=== PATIENT | male | born 1945 | race Caucasian/White ===

== ENCOUNTER 2022-01-02 19:50 | Inpatient (IN) | payer OTHER ==
[~2022-01-02] VITALS: Ht 177.8 cm; Wt 99.8 kg
[2022-01-02 20:08] VITALS: BP 208/104
[2022-01-02] MEDS ORDERED: ACETAMINOPHEN 325 MG TAB PO ONE (20:35)
[2022-01-02] MEDS ORDERED: ONDANSETRON 4 MG/2 ML VIAL IVP ONE (20:35)
[2022-01-02] MEDS ORDERED: NACL 0.9% 1,000 ML IV ONE ×2 (20:35)
[2022-01-02 21:06] LABS: BASOPHILS % (AUTO) 0.2 % (0.0-2.0); EOSINOPHILS # (AUTO) 0.1 K/uL (0-0.4); EOSINOPHILS % (AUTO) 1.1 % (0.0-4.0); HEMATOCRIT 47.6 % (36-52); HEMOGLOBIN 15.8 g/dL (12.0-18.0); LYMPHOCYTES # (AUTO) 0.5 K/uL (2.0-11.5); LYMPHOCYTES % (AUTO) 7.9 % (20.5-51.1); MEAN CORPUSCULAR HEMOGLOBIN 31 pg (27-31); MEAN CORPUSCULAR HGB CONC 33 g/dL (33-37); MEAN CORPUSCULAR VOLUME 92.1 fL (80-94); MONOCYTES % (AUTO) 0.5 % (1.7-9.3); NEUTROPHILS # (AUTO) 5.6 K/uL (1.8-7.7); NEUTROPHILS % (AUTO) 90.3 % (42.2-75.2); PLATELET COUNT (AUTO) 194 K/uL (140-450); RED BLOOD CELL COUNT(AUTO) 5.17 MIL/uL (4.20-6.10); RED CELL DISTRIBUTION WIDTH 13.6 % (11.6-13.7); WHITE BLOOD COUNT (AUTO) 6.3 K/uL (4.8-10.8)
[2022-01-02 21:20] LABS: PROTHROMBIN TIME 10.4 secs (10.8-13.4)
[2022-01-02 21:24] LABS: ALBUMIN 2.6 g/dL (3.4-5.0); ANION GAP 9.1 (8-16); ASPARTATE AMINOTRANSFERASE 23 U/L (15-37); CARBON DIOXIDE 27.9 mmol/L (21-32); CHLORIDE 108 mmol/L (98-107); GLUCOSE 251 mg/dL (74-106); SODIUM SERUM 140 mmol/L (136-145); TOTAL BILIRUBIN 0.6 mg/dL (0.0-1.0); UREA NITROGEN, BLOOD 26 mg/dL (7-18)
[2022-01-02] MEDS ORDERED: cefTRIAXone 1,000 MG VIAL ONE (22:39)
[2022-01-02] MEDS ORDERED: METF-713 PO (23:14)
[2022-01-02] MEDS ORDERED: LOSA100T1 PO (23:15)
[2022-01-02] MEDS ORDERED: TAMS0.4C96 PO (23:16)
[2022-01-03 06:42] LABS: HEMATOCRIT 44.2 % (36-52); HEMOGLOBIN 14.3 g/dL (12.0-18.0); MEAN CORPUSCULAR HEMOGLOBIN 30 pg (27-31); MEAN CORPUSCULAR HGB CONC 32 g/dL (33-37); MEAN CORPUSCULAR VOLUME 93.3 fL (80-94); PLATELET COUNT (AUTO) 176 K/uL (140-450); RED BLOOD CELL COUNT(AUTO) 4.74 MIL/uL (4.20-6.10); RED CELL DISTRIBUTION WIDTH 13.4 % (11.6-13.7)
[2022-01-03 06:48] LABS: ANION GAP 6.3 (8-16); CARBON DIOXIDE 26.7 mmol/L (21-32); CHLORIDE 110 mmol/L (98-107); CREATININE 2.2 mg/dL (0.6-1.3); GLUCOSE 187 mg/dL (74-106); SODIUM SERUM 138 mmol/L (136-145); UREA NITROGEN, BLOOD 26 mg/dL (7-18)
[2022-01-03 06:52] LABS: WHITE BLOOD COUNT (AUTO) 25.7 K/uL (4.8-10.8)
[2022-01-03 07:03] LABS: LYMPHOCYTES % (MANUAL) 3 % (20-46); MONOCYTES % (MANUAL) 5 % (5-12)
[2022-01-03] MEDS ORDERED: VANCOMYCIN PER PHARMACY MC PRN (07:15)
[2022-01-03] MEDS ORDERED: DOCUSATE SODIUM 100 MG GELCAP PO PRN (07:20)
[2022-01-03] MEDS ORDERED: ONDANSETRON 4 MG/2 ML VIAL IVP PRN (07:20)
[2022-01-03] MEDS ORDERED: DEXTROSE 50% 50 ML SYR IVP PRN (07:20)
[2022-01-03] MEDS ORDERED: LORazepam 2 MG/ML VIAL IVP PRN (07:20)
[2022-01-03] MEDS ORDERED: ACETAMINOPHEN 325 MG TAB PO PRN (07:20)
[2022-01-03] MEDS ORDERED: POTASSIUM CHLORIDE 10 MEQ TABER PO PRN (07:20)
[2022-01-03] MEDS ORDERED: MAG SULF 2000 MG/WATER PREMIX 50 ML IV PRN (07:20)
[2022-01-03] MEDS ORDERED: ZOLPIDEM 10 MG TAB PO PRN (07:20)
[2022-01-03] MEDS: BLOOD GLUCOSE MONITORING 1 DEV DEV FS SCH ×4 (07:30→21:50)
[2022-01-03] MEDS ORDERED: hePARIN / DEXT 5% PREMIX 250 ML IV SCH (08:05)
[2022-01-03 08:27] LABS: APPEARANCE,URINE CLOUDY (CLEAR); BILIRUBIN,URINE NEGATIVE (NEGATIVE); BLOOD, URINE 2+ (NEGATIVE); COLOR,URINE YELLOW (YELLOW); LEUKOCYTE ESTERASE ,URINE 2+ (NEGATIVE); NITRITE, URINE NEGATIVE (NEGATIVE); UGLUCOSE 1+ (NEGATIVE)
[2022-01-03] MEDS ORDERED: HEPARIN PER PHARMACY MC PRN (08:30)
[2022-01-03 08:42] LABS: RBC,URINE 11-20 (MOD) /HPF (0-5)
[2022-01-03 08:43] LABS: OTHER CASTS, URINE None Seen /LPF (None Seen); WBC,URINE 16-25 (MOD) /HPF (0-5)
[2022-01-03] MEDS: ASPIRIN 81 MG TAB.CHEW PO SCH (08:56)
[2022-01-03] MEDS: TAMSULOSIN 0.4 MG CAP PO SCH (08:56)
[2022-01-03] MEDS: hePARIN / DEXT 5% PREMIX 250 ML IV SCH (09:53)
[2022-01-03] MEDS ORDERED: VANCOMYCIN HCL 1.25 GM in DEXTROSE 5% 250 ML IV SCH (10:00)
[2022-01-03 10:35] VITALS: BP 120/82
[2022-01-03 12:00] VITALS: BP 114/78
[2022-01-03] MEDS: INSULIN LISPRO SLIDING SCALE 100 UNITS/ML VIAL SUBQ PRN (12:04)
[2022-01-03] MEDS: PIPERACILLIN/TAZOBACTAM 2.25 GM in DEXTROSE 5% 50 ML IV SCH ×2 (13:34→21:00)
[2022-01-03 16:00] VITALS: BP 114/78
[2022-01-03] MEDS ORDERED: FUROSEMIDE 40 MG/4 ML VIAL IVP SCH (17:55)
[2022-01-03 20:00] VITALS: BP 116/65
[2022-01-03] MEDS: ATORVASTATIN 20 MG TAB PO SCH (21:52)
[2022-01-04] VITALS: BP 116/65
[2022-01-04 04:00] VITALS: BP 135/71
[2022-01-04] MEDS: PIPERACILLIN/TAZOBACTAM 2.25 GM in DEXTROSE 5% 50 ML IV SCH ×3 (05:46→21:44)
[2022-01-04 06:53] LABS: BASOPHILS % (AUTO) 0.3 % (0.0-2.0); EOSINOPHILS # (AUTO) 0.3 K/uL (0-0.4); EOSINOPHILS % (AUTO) 1.6 % (0.0-4.0); HEMATOCRIT 41.9 % (36-52); HEMOGLOBIN 13.5 g/dL (12.0-18.0); LYMPHOCYTES # (AUTO) 1.9 K/uL (2.0-11.5); MEAN CORPUSCULAR HEMOGLOBIN 30 pg (27-31); MEAN CORPUSCULAR HGB CONC 32 g/dL (33-37); MONOCYTES # (AUTO) 1.2 K/uL (0.8-1.0); MONOCYTES % (AUTO) 7.8 % (1.7-9.3); NEUTROPHILS # (AUTO) 12.2 K/uL (1.8-7.7); NEUTROPHILS % (AUTO) 78.3 % (42.2-75.2); PLATELET COUNT (AUTO) 144 K/uL (140-450); RED BLOOD CELL COUNT(AUTO) 4.51 MIL/uL (4.20-6.10); RED CELL DISTRIBUTION WIDTH 13.7 % (11.6-13.7); WHITE BLOOD COUNT (AUTO) 15.6 K/uL (4.8-10.8)
[2022-01-04 07:18] LABS: ANION GAP 8.1 (8-16); CARBON DIOXIDE 29.7 mmol/L (21-32); CHLORIDE 106 mmol/L (98-107); CREATININE 2.2 mg/dL (0.6-1.3); GLUCOSE 135 mg/dL (74-106); POTASSIUM 4.8 mmol/L (3.5-5.1); SODIUM SERUM 139 mmol/L (136-145); UREA NITROGEN, BLOOD 26 mg/dL (7-18)
[2022-01-04] MEDS: BLOOD GLUCOSE MONITORING 1 DEV DEV FS SCH ×4 (07:29→22:00)
[2022-01-04 08:00] VITALS: BP 141/70
[2022-01-04] MEDS ORDERED: VANCOMYCIN 1,000 MG in NACL 0.9% 250 ML IV SCH (08:00)
[2022-01-04] MEDS: ASPIRIN 81 MG TAB.CHEW PO SCH (08:20)
[2022-01-04] MEDS: TAMSULOSIN 0.4 MG CAP PO SCH (08:20)
[2022-01-04] MEDS: hePARIN / DEXT 5% PREMIX 250 ML IV SCH (10:34)
[2022-01-04 12:00] VITALS: BP 157/73
[2022-01-04 15:06] LABS: APPEARANCE,URINE CLOUDY (CLEAR); BILIRUBIN,URINE NEGATIVE (NEGATIVE); BLOOD, URINE 3+ (NEGATIVE); COLOR,URINE DARK YELLOW (YELLOW); LEUKOCYTE ESTERASE ,URINE 2+ (NEGATIVE); NITRITE, URINE NEGATIVE (NEGATIVE); UGLUCOSE NEGATIVE (NEGATIVE)
[2022-01-04 15:19] LABS: RBC,URINE 11-20 (MOD) /HPF (0-5); WBC,URINE 16-25 (MOD) /HPF (0-5)
[2022-01-04 16:00] VITALS: BP 138/81
[2022-01-04 20:00] VITALS: BP 148/87
[2022-01-04] MEDS: ATORVASTATIN 20 MG TAB PO SCH (21:45)
[2022-01-04] MEDS: INSULIN LISPRO SLIDING SCALE 100 UNITS/ML VIAL SUBQ PRN (22:57)
[2022-01-05] VITALS: BP 151/88
[2022-01-05 04:00] VITALS: BP 157/91
[2022-01-05] MEDS: PIPERACILLIN/TAZOBACTAM 2.25 GM in DEXTROSE 5% 50 ML IV SCH ×3 (05:47→21:09)
[2022-01-05 06:20] LABS: BASOPHILS # (AUTO) 0.1 K/uL (0.00-0.22); BASOPHILS % (AUTO) 0.4 % (0.0-2.0); EOSINOPHILS # (AUTO) 0.5 K/uL (0-0.4); EOSINOPHILS % (AUTO) 3.9 % (0.0-4.0); HEMATOCRIT 42.9 % (36-52); HEMOGLOBIN 14.2 g/dL (12.0-18.0); LYMPHOCYTES # (AUTO) 1.4 K/uL (2.0-11.5); LYMPHOCYTES % (AUTO) 10.2 % (20.5-51.1); MEAN CORPUSCULAR HEMOGLOBIN 31 pg (27-31); MEAN CORPUSCULAR HGB CONC 33 g/dL (33-37); MEAN CORPUSCULAR VOLUME 93.4 fL (80-94); MONOCYTES # (AUTO) 0.9 K/uL (0.8-1.0); MONOCYTES % (AUTO) 6.6 % (1.7-9.3); NEUTROPHILS # (AUTO) 10.6 K/uL (1.8-7.7); NEUTROPHILS % (AUTO) 78.9 % (42.2-75.2); PLATELET COUNT (AUTO) 175 K/uL (140-450); RED CELL DISTRIBUTION WIDTH 13.4 % (11.6-13.7); WHITE BLOOD COUNT (AUTO) 13.4 K/uL (4.8-10.8)
[2022-01-05 06:49] LABS: ANION GAP 10.6 (8-16); CARBON DIOXIDE 29.6 mmol/L (21-32); CHLORIDE 105 mmol/L (98-107); CREATININE 2.1 mg/dL (0.6-1.3); GLUCOSE 122 mg/dL (74-106); POTASSIUM 5.2 mmol/L (3.5-5.1); SODIUM SERUM 140 mmol/L (136-145); UREA NITROGEN, BLOOD 25 mg/dL (7-18)
[2022-01-05] MEDS: BLOOD GLUCOSE MONITORING 1 DEV DEV FS SCH ×4 (07:56→21:09)
[2022-01-05 08:00] VITALS: BP 168/99
[2022-01-05] MEDS ORDERED: SODIUM ZIRCONIUM CYCLOSILICATE 10 GM POWD.PACK PO SCH (09:00)
[2022-01-05] MEDS: ASPIRIN 81 MG TAB.CHEW PO SCH (09:31)
[2022-01-05] MEDS: TAMSULOSIN 0.4 MG CAP PO SCH (09:31)
[2022-01-05] MEDS: lisinopriL 20 MG TAB PO SCH (09:32)
[2022-01-05] MEDS: hePARIN / DEXT 5% PREMIX 250 ML IV SCH ×2 (09:36→19:18)
[2022-01-05] MEDS ORDERED: VANCOMYCIN HCL 1.25 GM in DEXTROSE 5% 250 ML IV SCH (11:00)
[2022-01-05] MEDS: INSULIN LISPRO SLIDING SCALE 100 UNITS/ML VIAL SUBQ PRN (11:34)
[2022-01-05 12:00] VITALS: BP 145/89
[2022-01-05] MEDS: carvediloL 12.5 MG TAB PO SCH ×2 (15:01→21:10)
[2022-01-05 16:00] VITALS: BP 132/76
[2022-01-05 20:00] VITALS: BP 126/66
[2022-01-05] MEDS: ATORVASTATIN 20 MG TAB PO SCH (21:10)
[2022-01-06] VITALS: BP 132/78
[2022-01-06] MEDS: hePARIN / DEXT 5% PREMIX 250 ML IV SCH ×3 (01:52→15:55)
[2022-01-06] MEDS: MORPHINE SULFATE 2 MG/ML SYR IVP PRN (03:47)
[2022-01-06 04:00] VITALS: BP 136/89
[2022-01-06] MEDS: PIPERACILLIN/TAZOBACTAM 2.25 GM in DEXTROSE 5% 50 ML IV SCH ×2 (05:26→13:03)
[2022-01-06] MEDS: BLOOD GLUCOSE MONITORING 1 DEV DEV FS SCH ×4 (06:45→20:55)
[2022-01-06] MEDS: INSULIN LISPRO SLIDING SCALE 100 UNITS/ML VIAL SUBQ PRN ×3 (06:46→20:59)
[2022-01-06 07:55] LABS: BASOPHILS # (AUTO) 0.1 K/uL (0.00-0.22); BASOPHILS % (AUTO) 0.5 % (0.0-2.0); EOSINOPHILS # (AUTO) 0.3 K/uL (0-0.4); EOSINOPHILS % (AUTO) 2.5 % (0.0-4.0); HEMATOCRIT 39.6 % (36-52); HEMOGLOBIN 13.3 g/dL (12.0-18.0); LYMPHOCYTES # (AUTO) 1.4 K/uL (2.0-11.5); LYMPHOCYTES % (AUTO) 13.4 % (20.5-51.1); MEAN CORPUSCULAR HEMOGLOBIN 31 pg (27-31); MEAN CORPUSCULAR HGB CONC 34 g/dL (33-37); MEAN CORPUSCULAR VOLUME 93.5 fL (80-94); NEUTROPHILS # (AUTO) 7.6 K/uL (1.8-7.7); NEUTROPHILS % (AUTO) 73.6 % (42.2-75.2); PLATELET COUNT (AUTO) 141 K/uL (140-450); RED BLOOD CELL COUNT(AUTO) 4.23 MIL/uL (4.20-6.10); RED CELL DISTRIBUTION WIDTH 13.5 % (11.6-13.7); WHITE BLOOD COUNT (AUTO) 10.3 K/uL (4.8-10.8)
[2022-01-06 07:56] LABS: ANION GAP 9.6 (8-16); CARBON DIOXIDE 29.8 mmol/L (21-32); CHLORIDE 104 mmol/L (98-107); CREATININE 1.8 mg/dL (0.6-1.3); GLUCOSE 127 mg/dL (74-106); POTASSIUM 4.4 mmol/L (3.5-5.1); SODIUM SERUM 139 mmol/L (136-145); UREA NITROGEN, BLOOD 24 mg/dL (7-18)
[2022-01-06 08:00] VITALS: BP 133/76
[2022-01-06] MEDS: TAMSULOSIN 0.4 MG CAP PO SCH (09:40)
[2022-01-06] MEDS: ASPIRIN 81 MG TAB.CHEW PO SCH (09:40)
[2022-01-06] MEDS: carvediloL 12.5 MG TAB PO SCH ×2 (09:41→20:58)
[2022-01-06] MEDS: lisinopriL 20 MG TAB PO SCH (09:41)
[2022-01-06] MEDS ORDERED: VANCOMYCIN 1,000 MG in NACL 0.9% 250 ML IV SCH (10:00)
[2022-01-06 12:00] VITALS: BP 118/68
[2022-01-06 16:00] VITALS: BP 134/75
[2022-01-06 20:00] VITALS: BP 142/80
[2022-01-06] MEDS: ATORVASTATIN 20 MG TAB PO SCH (20:58)
[2022-01-06] MEDS: MEROPENEM 1,000 MG in NACL 0.9% 50 ML IV SCH (20:58)
[2022-01-07] VITALS: BP 108/45
[2022-01-07 04:00] VITALS: BP 138/82
[2022-01-07 05:56] LABS: BASOPHILS % (AUTO) 0.2 % (0.0-2.0); EOSINOPHILS # (AUTO) 0.3 K/uL (0-0.4); HEMOGLOBIN 12.1 g/dL (12.0-18.0); LYMPHOCYTES # (AUTO) 1.5 K/uL (2.0-11.5); LYMPHOCYTES % (AUTO) 13.9 % (20.5-51.1); MEAN CORPUSCULAR HEMOGLOBIN 31 pg (27-31); MEAN CORPUSCULAR HGB CONC 34 g/dL (33-37); MEAN CORPUSCULAR VOLUME 92.4 fL (80-94); MONOCYTES # (AUTO) 1.2 K/uL (0.8-1.0); MONOCYTES % (AUTO) 11.6 % (1.7-9.3); NEUTROPHILS # (AUTO) 7.6 K/uL (1.8-7.7); NEUTROPHILS % (AUTO) 71.3 % (42.2-75.2); PLATELET COUNT (AUTO) 161 K/uL (140-450); RED CELL DISTRIBUTION WIDTH 13.1 % (11.6-13.7); WHITE BLOOD COUNT (AUTO) 10.7 K/uL (4.8-10.8)
[2022-01-07 06:13] LABS: ANION GAP 7.8 (8-16); CARBON DIOXIDE 30.5 mmol/L (21-32); CHLORIDE 105 mmol/L (98-107); GLUCOSE 125 mg/dL (74-106); POTASSIUM 4.3 mmol/L (3.5-5.1); SODIUM SERUM 139 mmol/L (136-145); UREA NITROGEN, BLOOD 12 mg/dL (7-18)
[2022-01-07] MEDS: BLOOD GLUCOSE MONITORING 1 DEV DEV FS SCH ×4 (06:54→20:16)
[2022-01-07 08:00] VITALS: BP 132/82
[2022-01-07] MEDS: carvediloL 12.5 MG TAB PO SCH ×2 (08:26→20:17)
[2022-01-07] MEDS: ASPIRIN 81 MG TAB.CHEW PO SCH (08:26)
[2022-01-07] MEDS: TAMSULOSIN 0.4 MG CAP PO SCH (08:26)
[2022-01-07] MEDS: MORPHINE SULFATE 2 MG/ML SYR IVP PRN (08:27)
[2022-01-07] MEDS: lisinopriL 20 MG TAB PO SCH (08:27)
[2022-01-07] MEDS: MEROPENEM 1,000 MG in NACL 0.9% 50 ML IV SCH ×2 (08:27→20:17)
[2022-01-07 12:00] VITALS: BP 132/82
[2022-01-07] MEDS ORDERED: TAMS0.4C96 PO (14:14)
[2022-01-07] MEDS ORDERED: MERO1PIG IV (14:14)
[2022-01-07] MEDS ORDERED: ASPI81CT95 PO (14:14)
[2022-01-07] MEDS ORDERED: ATOR20TA40 PO (14:14)
[2022-01-07] MEDS ORDERED: CARV12.52 PO (14:14)
[2022-01-07] MEDS ORDERED: LISI20TA29 PO (14:14)
[2022-01-07] MEDS ORDERED: HUMSLIDE SUBQ (14:14)
[2022-01-07] MEDS ORDERED: LOV40I SUBQ (14:16)
[2022-01-07 16:00] VITALS: BP 129/82
[2022-01-07 20:00] VITALS: BP 165/79
[2022-01-07] MEDS: ATORVASTATIN 20 MG TAB PO SCH (20:18)
[2022-01-07] MEDS: INSULIN LISPRO SLIDING SCALE 100 UNITS/ML VIAL SUBQ PRN (20:25)
[2022-01-07] MEDS: hePARIN / DEXT 5% PREMIX 250 ML IV SCH (23:09)
[2022-01-08] VITALS: BP 144/73
[2022-01-08 04:00] VITALS: BP 181/99
[2022-01-08] MEDS: MORPHINE SULFATE 2 MG/ML SYR IVP PRN (04:02)
[2022-01-08 05:47] LABS: BASOPHILS % (AUTO) 0.5 % (0.0-2.0); EOSINOPHILS # (AUTO) 0.2 K/uL (0-0.4); EOSINOPHILS % (AUTO) 2.6 % (0.0-4.0); HEMATOCRIT 40.6 % (36-52); HEMOGLOBIN 13.7 g/dL (12.0-18.0); LYMPHOCYTES # (AUTO) 1.3 K/uL (2.0-11.5); LYMPHOCYTES % (AUTO) 13.5 % (20.5-51.1); MEAN CORPUSCULAR HEMOGLOBIN 31 pg (27-31); MEAN CORPUSCULAR HGB CONC 34 g/dL (33-37); MEAN CORPUSCULAR VOLUME 92.2 fL (80-94); MONOCYTES % (AUTO) 10.6 % (1.7-9.3); NEUTROPHILS # (AUTO) 6.9 K/uL (1.8-7.7); NEUTROPHILS % (AUTO) 72.8 % (42.2-75.2); PLATELET COUNT (AUTO) 191 K/uL (140-450); RED CELL DISTRIBUTION WIDTH 12.9 % (11.6-13.7); WHITE BLOOD COUNT (AUTO) 9.5 K/uL (4.8-10.8)
[2022-01-08] MEDS: lisinopriL 20 MG TAB PO SCH (05:48)
[2022-01-08 06:26] LABS: ANION GAP 9.6 (8-16); CARBON DIOXIDE 29.9 mmol/L (21-32); CHLORIDE 104 mmol/L (98-107); CREATININE 1.8 mg/dL (0.6-1.3); GLUCOSE 124 mg/dL (74-106); POTASSIUM 4.5 mmol/L (3.5-5.1); SODIUM SERUM 139 mmol/L (136-145); UREA NITROGEN, BLOOD 33 mg/dL (7-18)
[2022-01-08] MEDS: BLOOD GLUCOSE MONITORING 1 DEV DEV FS SCH ×2 (06:33→11:32)
[2022-01-08] MEDS ORDERED: hydrALAZINE 25 MG TAB PO PRN (08:10)
[2022-01-08] MEDS: MEROPENEM 1,000 MG in NACL 0.9% 50 ML IV SCH (08:28)
[2022-01-08] MEDS: TAMSULOSIN 0.4 MG CAP PO SCH (08:36)
[2022-01-08] MEDS: ASPIRIN 81 MG TAB.CHEW PO SCH (08:37)
[2022-01-08] MEDS: carvediloL 12.5 MG TAB PO SCH (08:37)
[2022-01-08] MEDS ORDERED: FUROSEMIDE 20 MG/2 ML VIAL IVP SCH (09:00)
[2022-01-08] MEDS: INSULIN LISPRO SLIDING SCALE 100 UNITS/ML VIAL SUBQ PRN (11:30)
[2022-01-08] MEDS ORDERED: MERO1PIG IV (14:01)
== END 2022-01-08 15:40 | DRG 871 ==
LOC: MED 19:50 → MTU 01-03 02:38
PROVIDERS: ADMIT Family Medicine; ATTEND Family Medicine
DX: A41.51 Sepsis due to Escherichia coli [E. coli] (principal); E43 Unspecified severe protein-calorie malnutrition; I21.4 Non-ST elevation (NSTEMI) myocardial infarction; J18.9 Pneumonia, unspecified organism; N17.0 Acute kidney failure with tubular necrosis; N39.0 Urinary tract infection, site not specified; I42.9 Cardiomyopathy, unspecified; Z16.12 Extended spectrum beta lactamase (ESBL) resistance; Z20.822 Contact with and (suspected) exposure to COVID-19; E11.9 Type 2 diabetes mellitus without complications; I10 Essential (primary) hypertension; M85.80 Other specified disorders of bone density and structure, unspecified site; N40.0 Benign prostatic hyperplasia without lower urinary tract symptoms; F17.200 Nicotine dependence, unspecified, uncomplicated; R26.81 Unsteadiness on feet; E86.0 Dehydration; E83.51 Hypocalcemia; E83.42 Hypomagnesemia; Z79.4 Long term (current) use of insulin; Z83.3 Family history of diabetes mellitus; Z68.31 Body mass index [BMI] 31.0-31.9, adult; E87.5 Hyperkalemia; R06.03 Acute respiratory distress
CPT/HCPCS: 36415; 36600; 71045; 71275; 76770; 80048; 80053; 80202; 81001; 82803; 82948; 83036; 83605; 83735; 83880; 84484; 85025; 85610; 85730; 87040; 87070; 87081; 87086; 87205; 93005; 96365; 96375; 97110; 97112; 97116; 97163-GP; 97530; 99291; J0696; J1644; J1940; J2185; J2270; J2405; J2543; J3370; J3475; J7030; J7060; Q0092; Q9967

== ENCOUNTER 2022-01-16 11:06 | Emergency (ER) | payer OTHER ==
[~2022-01-16] VITALS: Ht 165.1 cm; Wt 89.8 kg
[~2022-01-16 11:06] MED LIST: ASPI81CT95 PO; ATOR20TA40 PO; CARV12.52 PO; HUMSLIDE SUBQ; LISI20TA29 PO; LOV40I SUBQ; MERO1PIG IV; METF-713 PO; TAMS0.4C96 PO
[2022-01-16 11:14] VITALS: BP 156/80
--- NOTE | 2022-01-16 11:19 | NUR ---
76 y/o male biba from [facility], c/o hematuria for the past 24 hours. nurse from facility states pt was admitted to [facility] and on 01/08 for pulmonary embolism, pt was given lovenox and aspirin for tx and admitted to their facility for uro sepsis. a&ox4, ambulates with even and steady gait, turkish speaking only. denies any pain, cough, fever, chills, cp, sob, n/v/d, dysuria. pmh: htn, stemi, esbl urine, sepsis, dm2 nka
[2022-01-16 12:18] LABS: BASOPHILS # (AUTO) 0.1 K/uL (0.00-0.22); BASOPHILS % (AUTO) 0.7 % (0.0-2.0); EOSINOPHILS # (AUTO) 0.3 K/uL (0-0.4); EOSINOPHILS % (AUTO) 3.6 % (0.0-4.0); HEMATOCRIT 37.8 % (36-52); HEMOGLOBIN 12.6 g/dL (12.0-18.0); LYMPHOCYTES # (AUTO) 1.6 K/uL (2.0-11.5); LYMPHOCYTES % (AUTO) 17.6 % (20.5-51.1); MEAN CORPUSCULAR HEMOGLOBIN 31 pg (27-31); MEAN CORPUSCULAR HGB CONC 33 g/dL (33-37); MEAN CORPUSCULAR VOLUME 92.1 fL (80-94); MONOCYTES # (AUTO) 0.7 K/uL (0.8-1.0); MONOCYTES % (AUTO) 7.8 % (1.7-9.3); NEUTROPHILS # (AUTO) 6.5 K/uL (1.8-7.7); NEUTROPHILS % (AUTO) 70.3 % (42.2-75.2); PLATELET COUNT (AUTO) 270 K/uL (140-450); WHITE BLOOD COUNT (AUTO) 9.2 K/uL (4.8-10.8)
[2022-01-16 12:29] LABS: APPEARANCE,URINE SL CLOUDY (CLEAR); BILIRUBIN,URINE 1+ (NEGATIVE); BLOOD, URINE 3+ (NEGATIVE); COLOR,URINE RED (YELLOW); LEUKOCYTE ESTERASE ,URINE TRACE (NEGATIVE); NITRITE, URINE NEGATIVE (NEGATIVE); PH,URINE 6.5 (5.0-9.0); UGLUCOSE TRACE (NEGATIVE)
[2022-01-16 12:33] LABS: PROTHROMBIN TIME 10.8 secs (10.8-13.4)
[2022-01-16 12:34] LABS: ALBUMIN 2.4 g/dL (3.4-5.0); ASPARTATE AMINOTRANSFERASE 27 U/L (15-37); CARBON DIOXIDE 31.7 mmol/L (21-32); CHLORIDE 105 mmol/L (98-107); CREATININE 1.5 mg/dL (0.6-1.3); GLUCOSE 91 mg/dL (74-106); POTASSIUM 4.7 mmol/L (3.5-5.1); SODIUM SERUM 140 mmol/L (136-145); TOTAL BILIRUBIN 0.7 mg/dL (0.0-1.0); UREA NITROGEN, BLOOD 24 mg/dL (7-18)
[2022-01-16 12:42] LABS: OTHER CASTS, URINE None Seen /LPF (None Seen); RBC,URINE 20-50 /HPF (0-5)
--- NOTE | 2022-01-16 12:47 | NUR ---
madeleine ([email or web address]) given update at this time
--- NOTE | 2022-01-16 13:03 | NUR ---
itzel swab collected and given to lab
--- NOTE | 2022-01-16 14:50 | NUR ---
Patient discharged with v/s stable. Written and verbal after care instructions given and explained. Patient alert, oriented and verbalized understanding of instructions. Ambulatory with steady gait. All questions addressed prior to discharge. ID band removed. Patient advised to follow up with PMD.NO Rx of given. Patient educated on indication of medication including possible reaction and side effects. Opportunity to ask questions provided and answered.
[2022-01-16 15:10] VITALS: BP 140/75
== END 2022-01-16 15:10 | disposition home or self-care (01) ==
LOC: MED 11:06
DX: N39.0 Urinary tract infection, site not specified (principal); Z20.822 Contact with and (suspected) exposure to COVID-19; R31.9 Hematuria, unspecified; E11.9 Type 2 diabetes mellitus without complications; I10 Essential (primary) hypertension; Z79.899 Other long term (current) drug therapy; Z98.890 Other specified postprocedural states; Z79.4 Long term (current) use of insulin; Z79.82 Long term (current) use of aspirin
CPT/HCPCS: 36415; 80053; 81001; 85025; 85610; 85730; 86886; 86900; 86901; 87086; 99283